=== PATIENT | female | born 1980 | race African-American/Black ===

== ENCOUNTER 2022-01-14 06:20 | Emergency (ER) | payer MEDICAID ==
[~2022-01-14] VITALS: Ht 157.5 cm; Wt 68.0 kg
[2022-01-14 07:01] VITALS: BP 123/86
[2022-01-14 08:44] LABS: BASOPHILS % 0.7 % (0.0-2.0); EOSINOPHILS % 1.3 % (0.0-5.0); HEMATOCRIT. 36.3 % (36.0-48.0); HEMOGLOBIN. 12.3 g/dL (12.0-16.0); LYMPHOCYTES % 15.6 % (20.0-50.0); MEAN CORPUSCULAR HEMOGLOBIN 34.2 pg (28.0-32.0); MEAN PLATELET VOLUME 9.2 fl (7.4-10.4); MONOCYTES % 5.3 % (2.0-8.0); NEUTROPHILS % 77.1 % (40.0-76.0); PLATELET 469 x1000/uL (130-400); RED BLOOD CELL COUNT 3.59 mill/uL (4.2-5.4); RED CELL DISTRIBUTION WIDTH 16.5 % (11.6-14.6)
[2022-01-14 08:56] LABS: CHLORIDE 97 mEq/L (98-107)
[2022-01-14 09:03] LABS: ETHANOL BLOOD < 10 mg/dL
[2022-01-14 09:08] LABS: CLARITY URINE CLOUDY (CLEAR); COLOR URINE YELLOW (YELLOW); KETONES URINE 1+ (NEGATIVE); LEUKOCYTE ESTERASE URINE 1+ (NEGATIVE); NITRITE URINE NEGATIVE (NEGATIVE); OCCULT BLOOD URINE NEGATIVE (NEGATIVE); PH URINE >=9.0 (4.5-8.0); PROTEIN URINE NEGATIVE (NEGATIVE); SPECIFIC GRAVITY URINE 1.011 (1.005-1.030)
[2022-01-14 09:35] LABS: HCG SCREEN NEGATIVE
[2022-01-14 09:37] LABS: *AMPHETAMINES SCREEN URINE NEGATIVE (NEGATIVE); *BARBITURATES SCREEN URINE NEGATIVE (NEGATIVE); *BENZODIAZEPINES SCREEN URINE NEGATIVE (NEGATIVE); *COCAINE SCREEN URINE NEGATIVE (NEGATIVE); CANNABINOID URINE SCREEN NEGATIVE (NEGATIVE); METHADONE URINE SCREEN NEGATIVE (NEGATIVE); OPIATES URINE SCREEN NEGATIVE (NEGATIVE); PHENCYCLIDINE URINE SCREEN NEGATIVE (NEGATIVE)
[2022-01-15] MEDS ORDERED: METF-414 MT (00:17)
[2022-01-15] MEDS ORDERED: GABA-529 PO (00:17)
[2022-01-15] MEDS ORDERED: GABA-532 PO (00:17)
[2022-01-15] MEDS ORDERED: IBUP-2028 MT (00:17)
[2022-01-15] MEDS ORDERED: ATOR20TA65 PO (00:17)
[2022-01-16] MEDS ORDERED: FOLI-43 MT (14:02)
[2022-01-16] MEDS ORDERED: METO-539 MT (14:02)
[2022-01-16] MEDS ORDERED: MULT-1021 MT (14:02)
[2022-01-16] MEDS ORDERED: ASPI-1079 PO (14:02)
[2022-01-16] MEDS ORDERED: THIA100T88 MT (14:02)
[2022-01-16] MEDS ORDERED: PROT40 MT (14:02)
== END 2022-01-14 10:04 | disposition home or self-care (01) ==
LOC: ER 06:20
DX: M79.10 Myalgia, unspecified site (principal); N30.00 Acute cystitis without hematuria; E11.9 Type 2 diabetes mellitus without complications; Z79.84 Long term (current) use of oral hypoglycemic drugs
CPT/HCPCS: 36415; 80053; 80305; 80320; 81003; 81025; 84703; 85025; 85044; 93005; 99284; G0480